=== PATIENT | male | born 1945 | race Caucasian/White ===

== ENCOUNTER 2018-05-19 08:30 | Outpatient (CLI) | payer MEDICARE, BC ==
[2018-05-19] MEDS ORDERED: ADENOSINE 60 MG/20 ML VIAL ONE (11:14)
--- NOTE | 2018-05-19 14:16 | NM ---
MYOCARDIAL PERFUSION EVALUATION: INDICATIONS: Chest pain. RADIOPHARMACEUTICAL: Technetium 99m sestamibi 31 millicuries IV with stress. Technetium 99m sestamibi 9.4 millicuries IV with rest. FINDINGS: No reversible myocardial perfusion defect is evident. There is normal wall motion and thickening. Left ventricular ejection fraction is estimated at 63%. IMPRESSION: Normal myocardial perfusion evaluation. POS: RAFITA
== END 2018-05-19 08:31 | disposition home or self-care (01) ==
LOC: NM 08:30
PROVIDERS: ATTEND Internal Medicine
DX: R07.9 Chest pain, unspecified (principal)
CPT/HCPCS: 78452; 93017; A9500; J0153